=== PATIENT | female | born 1975 | race Caucasian/White ===

== ENCOUNTER 2024-01-21 15:18 | Day surgery (SDC) | payer OTHER ==
[2024-01-21] MEDS ORDERED: Depo-Medrol 40 MG/ML IM ONE (15:19)
[2024-01-21] MEDS ORDERED: BUPIVACAINE 0.5% VIAL IJ ONE (15:19)
[2024-01-21] MEDS ORDERED: Sodium Chloride 0.9(Preservative Free) 10 ML IJ ONE (15:19)
[2024-01-21] MEDS ORDERED: LIDOCAINE HCL 1% 50 MG/5 ML VL PF IJ ONE (15:19)
[2024-01-21 15:48] LABS: HCG URINE TEST NEGATIVE (NEGATIVE)
[2024-01-21] MEDS ORDERED: Lactated Ringers 1,000 ML IV ONE (17:17)
--- NOTE | 2024-01-21 20:41 | XRAY ---
Indication: Lumbar MO. Intraoperative fluoroscopy provided for 22 seconds. 2 digital spot image submitted for interpretation demonstrates posterior needle tip projecting posterior to lumbosacral junction interspace. Small amount of contrast injected for needle tip placement. Correlate with intraoperative findings/report.
--- NOTE | 2024-01-21 20:41 | XRAY ---
Indication: Left SI joint injection. Intraoperative fluoroscopy provided for 11 seconds. Single digital spot image submitted for interpretation demonstrates posterior needle tip projecting over left SI joint with small amount of contrast injected for needle tip placement. Correlate with intraoperative findings/report.
--- NOTE | 2024-01-22 10:12 | XRAY ---
22 seconds of fluoroscopy was used in surgery for a lumbar MO.
--- NOTE | 2024-01-22 10:12 | XRAY ---
11 seconds of fluoroscopy was used in surgery for a left sacroiliac joint injection.
== END 2024-01-21 17:37 | disposition home or self-care (01) ==
LOC: SDC-PAIN 15:18
PROVIDERS: ATTEND Psychiatry & Neurology Pain Medicine
DX: M54.16 Radiculopathy, lumbar region (principal)
CPT/HCPCS: 27096; 62323; 72100; 72170; 77002; 77003; 81025; J1010; J2001; Q9966; G0260; J1030

== ENCOUNTER 2024-10-10 12:04 | Emergency (ER) | payer OTHER ==
[2024-10-10 12:27] VITALS: TEMP 98.4
--- NOTE | 2024-10-10 12:41 | ERPHSYRPT ---
- History of Present Illness Time Seen by Provider: 10/10/24 12:40 Source: patient Exam Limitations: no limitations Patient Subjective Stated Complaint: pt had went to the [facility] in [place] for her cough and an x-ray didn't show anything but they are treating her for pnuemonia, pt continues to have a worsening cough and has had a fever but is afebrile today Triage Nursing Assessment: Pt brought self to the ER, vitals wnl, denies pain, persistant cough, sometimes has phlem, lung hx, sees Dr. Gilberto oJe, pulses normal, skin n/w/d, reports always feeling short of breath due to her lung issues Physician History: This is a 48-year-old overweight white female patient who presents to the emergency department with at least 4 days of coughing. Despite being evaluated by [facility] in [facility] and given prescription for azithromycin and Augmentin as well as Tessalon Perle prescription, the patient's symptoms are worsening per her report. Patient also has albuterol inhaler and small-volume nebulizers that she is using on a as needed basis. Her last small- volume nebulizer treatment was yesterday evening. Patient states she is allergic to all types of codeine hydrocodone and narcotic medications. She refuses any of those medications to help suppress her cough. She was not given prescriptions of steroids. Patient has a history of spontaneous pneumothoraces in the past and has undergone pleurodesis chemically. Patient does see a track sweeper. Patient's drug allergy list include amoxicillin. The patient was given a prescription and has been taking Augmentin. Patient had a negative COVID, influenza AMB, RSV and strep test performed on 10/07/2024. Timing/Duration: day(s) (4) Cough Quality/Degree: moderate, dry cough Possible Cause: occasional episodes Modifying Factors: Improves With: nothing, coughing Associated Symptoms: cough, sore throat (Coughing) Allergies/Adverse Reactions: hydrocodone Allergy (Severe, Verified 10/10/24 12:29) Vomiting acetaminophen [From Vicodin] Adverse Reaction (Severe, Verified 10/10/24 12:29) Vomiting fentanyl Adverse Reaction (Severe, Verified 10/10/24 12:29) Vomiting hydromorphone [From Dilaudid] Adverse Reaction (Severe, Verified 10/10/24 12:29) Vomiting morphine Adverse Reaction (Severe, Verified 10/10/24 12:29) Vomiting amoxicillin Adverse Reaction (Verified 10/10/24 12:29) Hx Influenza Vaccination/Date Given: No Hx Pneumococcal Vaccination/Date Given: No Travel Risk - International Travel Have you traveled outside of the country in past 3 weeks: No - Emerging Infectious Disease Are you exhibiting symptoms associated with any current EIDs: Yes Symptoms: Cough: New Onset - Review of Systems Constitutional: No Symptoms Eyes: No Symptoms Ears, Nose, & Throat: No Symptoms Respiratory: Cough Cardiac: No Symptoms Abdominal/Gastrointestinal: No Symptoms Genitourinary Symptoms: No Symptoms Musculoskeletal: No Symptoms Skin: No Symptoms Neurological: No Symptoms Psychological: No Symptoms Endocrine: No Symptoms Hematologic/Lymphatic: No Symptoms Immunological/Allergic: No Symptoms All Other Systems: Reviewed and Negative - Past Medical History Pertinent Past Medical History: Yes Cardiac History: Hypertension GI Medical History: GERD Psycho-Social History: Depression Other Medical History: right lung kept collapsing, muscle spasms, seasonal allergies - Past Surgical History Past Surgical History: Yes Musculoskeletal: Orthopedic Surgery Female Surgical History: Dilation & Curettage Other Surgical History: cyst removed rt breast, vestibular nerve section, scarring removed from uterus, rt lung glued - Female History Hx Last Menstrual Period: 2018 Hx Now: No - Social History Smoking Status: Never smoker Exposure to second hand smoke: No Drug Use: none - Social Determinants of Health Will the patient participate in the screening: Yes Do you worry about a steady place to live?: No Do you have any problems with any of the following?: No known problems In the past 12 months,have you had to go without utilities?: No Transportation Issues: No Has anyone in your support network made you feel unsafe?: No Have you or anyone in your house had to go without enough: No - Nursing Vital Signs Nursing Vital Signs: Initial Vital Signs Temperature 98.4 F 10/10/24 12:14 Pulse Rate 102 H 10/10/24 12:14 Blood Pressure 130/84 10/10/24 12:14 O2 Sat by Pulse Oximetry 93 L 10/10/24 12:14 Pain Scale Pain Intensity 0 - Physical Exam General Appearance: mild distress, alert, anxiety, obese Eye Exam: PERRL/EOMI, eyes nml inspection Ears, Nose, Throat Exam: normal ENT inspection, moist mucous membranes Neck Exam: normal inspection, non-tender, supple, full range of motion Respiratory Exam: rhonchi (Bilateral expiratory), No chest tenderness, No respiratory distress Cardiovascular Exam: regular rate/rhythm, normal heart sounds, normal peripheral pulses Gastrointestinal/Abdomen Exam: soft, normal bowel sounds, No tenderness Pelvic Exam: not done Rectal Exam: not done Back Exam: normal inspection, normal range of motion, No CVA tenderness, No vertebral tenderness Extremity Exam: normal inspection, normal range of motion, pelvis stable Neurologic Exam: alert, oriented x 3, cooperative, booster station operator II-XII nml as tested, nml cerebellar function, nml station & gait, sensation nml Skin Exam: normal color, warm, dry Lymphatic Exam: No adenopathy SpO2 Interpretation: normal SpO2: 96 O2 Delivery: Room Air - Course Nursing assessment & vital signs reviewed: Yes Ordered Tests: Active Orders 24 hr Category Date Time Status CHEST WITHOUT CONTRAST [CT] Stat Exams 10/10/24 13:08 Completed Respiratory Therapy Assessment DAILY RT 10/10/24 13:43 Active Medication Summary Discontinued Medications Generic Name Dose Route Start Last Admin Trade Name Gisele PRN Reason Stop Dose Admin Albuterol/Ipratropium Confirm 10/10/24 13:24 Ipratropium/Albuterol Sulfate 3 Ml Ampul.Neb Administered 10/10/24 13:25 Dose 3 ml IH .STK-MED ONE Albuterol/Ipratropium 3 ml 10/10/24 13:25 10/10/24 13:27 Ipratropium/Albuterol Sulfate 3 Ml Ampul.Neb IH 10/10/24 13:26 3 ml STAT ONE Administration Ceftriaxone Sodium 1,000 mg 10/10/24 13:12 10/10/24 13:29 Ceftriaxone Sodium 1000 Mg Inj Vial IM 10/10/24 13:13 1,000 mg STAT ONE Administration Ceftriaxone Sodium Confirm 10/10/24 13:22 Ceftriaxone Sodium 1000 Mg Inj Vial Administered 10/10/24 13:23 Dose 1,000 mg .ROUTE .STK-MED ONE Methylprednisolone Sodium 0 mg 10/10/24 13:12 10/10/24 13:28 Succinate 125 mg/ Sterile IM 10/10/24 13:13 125 mg Water 2 ml STAT ONE Administration Methylprednisolone Sodium Succinate Confirm 10/10/24 13:22 Methylprednis Sod Succ 125 Mg/2 Ml Vial Administered 10/10/24 13:23 Dose 125 mg .ROUTE .STK-MED ONE Sterile Water Confirm 10/10/24 13:22 Water For Injection,Sterile 10 Ml Vial Administered 10/10/24 13:23 Dose 10 ml IJ .STK-MED ONE - Progress Progress: improved, re-examined Air Movement: good Progress Note: 10/10/24 13:22 My medical decision making and the assignment of low to moderate complexity is based on review of the patient's past medical history, review the patient's medication list, reviewed patient drug allergy list, history present illness and physical findings on examination. The workup in this patient includes CT scan of the chest without contrast. In addition, we will have respiratory therapy provide her with a nebulizer treatment. We will provide her with an intramuscular injection of both Rocephin and Solu-Medrol. Differential diagnosis includes was not limited to viral illness, upper respiratory infection, pneumonia, pneumothorax 10/10/24 15:[address] scan of the chest without contrast was interpreted by the radiologist. Today's CT scan of the chest was compared to similar study dated 09/13/2024. The radiologist today states that there is a stable less than 10% pneumothorax that was present on the film dated 09/13/2024 but not previously reported. There is no evidence of infiltrate or effusion. There are no new cardiopulmonary abnor malities. Blood Culture(s) Obtained: No Antibiotics given: Yes Counseled pt/family regarding: lab results, diagnosis, need for follow-up, rad results Medical Desision Making - Diagnostic Testing Diagnostic test were ordered, analyzed, and reviewed by me: Yes Radiological Interpretation: Reviewed by me, Teleradiologist Report - Risk of complications Low Risk: Low risk of morbidity from additional dx testing or treatment The pt has a mod risk of morbidity or mortality based on: Need for prescription drug management - Departure Departure Disposition: Home Clinical Impression: Pneumothorax, left Condition: Stable Critical Care Time: No Referrals: CAREY GARG DO [Primary Care Provider] - Follow up/PCP as directed Additional Instructions: Drink plenty of fluids. Avoid exposure to any type of smoke. Use your incentive spirometer as instructed. Continue your antibiotics as prescribed. Stop the Augmentin if you are allergic to amoxicillin. Continue using your Tessalon Perles. Use your small-volume nebulizer treatments every 4 hours while awake. You may add Benadryl 25 mg orally 3 times a day to help with your cough. Alternatively, you may use NyQuil nighttime elixir or capsules to help with relieving your symptoms. Take your prednisone as prescribed. Return to the emergency department tomorrow for a PA and lateral chest x-ray. Call your primary prescribing provider today, 10/10/2024 to make arrangements for follow- up appointment to be seen later in the week.. Forms: Work/School Release Form Prescriptions: Prednisone 10 mg [Deltasone 10 mg] 10 mg PO TID #12 tablet
[2024-10-10] MEDS ORDERED: solu-MEDROL ONE (13:22)
[2024-10-10] MEDS ORDERED: Sterile H2O 10 ml IJ ONE (13:22)
[2024-10-10] MEDS ORDERED: Rocephin 1000 MG INJ ONE (13:22)
[2024-10-10] MEDS ORDERED: DUONEB 0.5-3 MG/3 ml Neb IH ONE (13:24)
[2024-10-10] MEDS: DUONEB 0.5-3 MG/3 ml Neb IH ONE (13:27)
[2024-10-10] MEDS: solu-MEDROL 125 MG, Sterile H2O 10 ml 2 ML IM ONE (13:28)
[2024-10-10] MEDS: Rocephin 1000 MG INJ IM ONE (13:29)
[2024-10-10 13:45] VITALS: PULSE 71; RESP 20
--- NOTE | 2024-10-10 15:18 | XRAY ---
Indication: Chronic cough. Multiple contiguous axial images obtained through the chest without contrast. Comparison: September 13, 2024 Right lung demonstrates stable diffuse calcified and noncalcified thickening minor/major fissures. Left lung demonstrates stable less than 10% pneumothorax not previously reported. Again incidental tiny posterior left lower lobe calcified granuloma. No infiltrate or effusion. Heart not enlarged. Aorta is normal in course and caliber. Stable small left hilar calcified nodes. No pathologic mediastinal lymphadenopathy. Bony thorax intact again with minimal degenerative changes throughout spine and old anterior left 3-5 rib fractures. Limited upper abdomen including adrenal glands are unremarkable. Impression: 1. Stable less than 10% left pneumothorax. 2. Again chronic findings including calcified/noncalcified thickening right hemithorax fissures, chronic bony findings, and old granulomatous disease. 3. No new cardiopulmonary abnormalities.
[2024-10-10 15:34] VITALS: O2SAT 96
[2024-10-10 15:52] VITALS: BP 106/63
== END 2024-10-10 16:20 | disposition home or self-care (01) ==
LOC: ED 12:04
DX: J93.9 Pneumothorax, unspecified (principal); R05.1 Acute cough; I10 Essential (primary) hypertension; Z79.52 Long term (current) use of systemic steroids
CPT/HCPCS: 71250; 94640; 96372; 99283; 99285; J0696; J2919; A9270-GY

== ENCOUNTER 2025-02-15 16:28 | Day surgery (SDC) | payer OTHER ==
[2025-02-15] MEDS ORDERED: BUPIVACAINE 0.5% VIAL IJ ONE (16:29)
[2025-02-15] MEDS ORDERED: LIDOCAINE HCL 1% 50 MG/5 ML VL IJ ONE (16:29)
[2025-02-15] MEDS ORDERED: methylPREDNISolone acetate IM ONE (16:29)
[2025-02-15 16:41] LABS: HCG URINE TEST NEGATIVE (NEGATIVE)
--- NOTE | 2025-02-15 20:06 | XRAY ---
Indication: Right SI joint injection. Intraoperative fluoroscopy provided for 21 seconds. Single digital spot image submitted for interpretation demonstrates posterior needle tip projecting over right SI joint. Small amount of contrast injected for needle tip placement. Correlate with intraoperative findings/report.
--- NOTE | 2025-02-16 08:52 | XRAY ---
21 seconds of fluoroscopy was used in surgery for a right sacroiliac joint injection.
== END 2025-02-15 18:35 | disposition home or self-care (01) ==
LOC: SDC-PAIN 16:28
PROVIDERS: ATTEND Psychiatry & Neurology Pain Medicine
DX: M46.1 Sacroiliitis, not elsewhere classified (principal)
CPT/HCPCS: 27096; 72170; 81025; J1010; Q9966

== ENCOUNTER 2025-08-24 15:15 | Day surgery (SDC) | payer OTHER ==
[2025-08-24] MEDS ORDERED: methylPREDNISolone acetate IM ONE (15:16)
[2025-08-24] MEDS ORDERED: LIDOCAINE HCL 1% 50 MG/5 ML VL IJ ONE (15:16)
[2025-08-24 15:25] LABS: HCG URINE TEST NEGATIVE (NEGATIVE)
--- NOTE | 2025-08-24 17:33 | XRAY ---
Indication: Lumbar MO. Intraoperative fluoroscopy provided for 23 seconds. 4 digital spot image submitted for interpretation demonstrates posterior needle tip projecting posterior to lumbosacral junction. Small amount of contrast injected for needle tip placement. Correlate with intraoperative findings/report.
[2025-08-24] MEDS ORDERED: Lactated Ringers 1,000 ML IV ONE (18:00)
--- NOTE | 2025-08-25 12:03 | XRAY ---
23 seconds of fluoroscopy was used in surgery for a lumbar MO.
== END 2025-08-24 17:10 | disposition home or self-care (01) ==
LOC: SDC-PAIN 15:15
PROVIDERS: ATTEND Psychiatry & Neurology Pain Medicine
DX: M54.16 Radiculopathy, lumbar region (principal)